=== PATIENT | female | born 1945 | race Caucasian/White ===

== ENCOUNTER → 2017-12-19 | Outpatient (CLI) | payer MEDICARE, OTHER | LOC: LAB 08:26 | PROVIDERS: ATTEND Emergency Medicine | DX: D64.9 Anemia, unspecified (principal); E28.1 Androgen excess; I10 Essential (primary) hypertension; Z79.890 Hormone replacement therapy; M19.90 Unspecified osteoarthritis, unspecified site ==

== ENCOUNTER → 2018-11-11 | Outpatient (CLI) | payer MEDICARE, OTHER | LOC: LAB.O 08:31 | PROVIDERS: ATTEND Internal Medicine Interventional Cardiology | DX: E78.5 Hyperlipidemia, unspecified (principal) ==

== ENCOUNTER → 2019-11-05 | Outpatient (CLI) | payer MEDICARE, OTHER ==
--- NOTE | 2019-11-05 09:55 | RAD ---
EXAM DESCRIPTION: Hand,Right 3 Views CLINICAL HISTORY: PAIN IN RIGHT HAND COMPARISON: None Available. TECHNIQUE: AP, LATERAL, AND OBLIQUE radiographs of the right hand. FINDINGS: Mild diffuse osteopenia of the visualized bones noted. No acute fracture or dislocation. Mild to moderate osteoarthritic degenerative involving the first carpometacarpal joint, first MCP joint and also involving all the PIP and DIP joints. No bony erosions identified. The overlying soft tissues appear grossly unremarkable. IMPRESSION: 1. No acute fracture or dislocation. 2. Mild to moderate osteoarthritic changes involving the PIP, DIP, first MCP and first CMC joints. Electronically signed by: Chris Márquez MD 11/05/2019 9:54 AM [facility]
--- NOTE | 2019-11-05 09:58 | RAD ---
EXAM DESCRIPTION: Hand,Left 3 Views CLINICAL HISTORY: PAIN IN LEFT HAND COMPARISON: None Available. TECHNIQUE: AP, LATERAL, AND OBLIQUE radiographs of the left hand. FINDINGS: Mild diffuse osteopenia of the visualized bones noted. No acute fracture or dislocation. Mild osteoarthritic changes noted involving the PIP and DIP joints. The soft tissues appear grossly unremarkable. IMPRESSION: 1. No acute fracture or dislocation. 2. Mild osteoarthritic changes. Electronically signed by: Chris Márquez MD 11/05/2019 9:57 AM [facility]
== END ==
LOC: RAD 09:09
PROVIDERS: ATTEND Orthopaedic Surgery
DX: M19.041 Primary osteoarthritis, right hand (principal); M19.042 Primary osteoarthritis, left hand